=== PATIENT | male | born 1965 | race Caucasian/White ===

== ENCOUNTER 2020-09-08 07:09 | Inpatient (IN) | payer MEDICAID, OTHER ==
[~2020-09-08] VITALS: Ht 170.2 cm; Wt 116.4 kg
[~2020-09-08 07:09] MED LIST: CEFD300C37 PO; LIDOCAINE 4%, 4 ML SYR/CANN TP ONE; OXYMETAZOLINE NASAL SPRAY 0.05%,30ML ONE
[2020-09-08] MEDS ORDERED: LACTATED RINGERS 1,000 ML IV SCH (07:30)
[2020-09-08] MEDS ORDERED: CHLORHEXIDINE 15 ML UDC PO ONE (07:30)
[2020-09-08] MEDS ORDERED: TYLENOL OTC (07:37)
[2020-09-08 07:41] VITALS: BP 144/105
[2020-09-08] MEDS ORDERED: MIDAZOLAM 1 MG/ML, 2ML ONE (08:01)
[2020-09-08] MEDS ORDERED: PROPOFOL 10 MG/ML, 20ML ONE (08:01)
[2020-09-08] MEDS ORDERED: FENTANYL PF 100 MCG/2ML ONE ×3 (08:01→12:09)
[2020-09-08] MEDS ORDERED: LIDOCAINE-MPF 2% ,5ML ONE (08:01)
[2020-09-08] MEDS ORDERED: SUCCINYLCHOLINE 20 MG/ML, 10ML ONE (08:03)
[2020-09-08] MEDS ORDERED: ONDANSETRON 2MG/ML, 2ML ONE (08:37)
[2020-09-08] MEDS ORDERED: CEFAZOLIN 1,000 MG ONE ×2 (08:37)
[2020-09-08] MEDS ORDERED: LIDOCAINE/PF 1%, 30ML ONE (08:54)
[2020-09-08] MEDS ORDERED: EPINEPHRINE 1 MG/ML, 1ML ONE (08:54)
[2020-09-08] MEDS ORDERED: MEPERIDINE/PF 25MG/0.5ML IVPush PRN (09:00)
[2020-09-08] MEDS ORDERED: PROMETHAZINE 25 MG/ML, 1ML IVPush PRN (09:00)
[2020-09-08] MEDS ORDERED: LABETALOL 5MG/ML, 20ML IV PRN (09:00)
[2020-09-08] MEDS ORDERED: ACETAMINOPHEN 325 MG TABLET PO PRN (09:00)
[2020-09-08] MEDS ORDERED: DIAZEPAM 5 MG/ML, 2ML IVPush PRN (09:00)
[2020-09-08] MEDS ORDERED: ONDANSETRON 2MG/ML, 2ML IVPush PRN (09:00)
[2020-09-08] MEDS ORDERED: HYDROmorphone 1 MG/ML, 1ML INJ IVPush PRN (09:00)
[2020-09-08] MEDS ORDERED: hydrALAzine 20 MG/ML, 1ML IV PRN (09:00)
[2020-09-08] MEDS ORDERED: OXYcodone 5 MG/5 ML ORAL.SOL UDC PO PRN (09:00)
[2020-09-08] MEDS ORDERED: FENTANYL PF 100 MCG/2ML IV PRN (09:00)
[2020-09-08] MEDS ORDERED: EPINEPHRINE TOPICAL SOLN 1 MG/ML, 30ML TP ONE (09:41)
[2020-09-08] MEDS ORDERED: FLUORESCEIN SODIUM 500 MG/5 ML IV ONE (09:43)
[2020-09-08] MEDS ORDERED: EPINEPHRINE TOPICAL SOLN 1 MG/ML, 30ML ONE (10:20)
[2020-09-08] MEDS ORDERED: FLUORESCEIN SODIUM 500 MG/5 ML ONE (10:20)
[2020-09-08] MEDS ORDERED: BACITRACIN OINT 500U/GM, 15 GM ONE (10:20)
[2020-09-08] MEDS ORDERED: ACETAMINOPHEN 650 MG/20.3 ML UDC ONE (10:39)
[2020-09-08 11:08] LABS: BASOPHILS % (AUTO) 1 % (0-1); EOSINOPHILS % (AUTO) 2 % (1-7); LYMPHOCYTES % (AUTO) 18 % (22-44); MEAN CORPUSCULAR HEMOGLOBIN 32.1 pg (27.5-34.5); MEAN PLATELET VOLUME 7.3 fL (7.4-10.4); MONOCYTES % (AUTO) 10 % (2-9); NEUTROPHILS % (AUTO) 70 % (42-75); PLATELET COUNT 336 x10^3/uL (130-400); RED BLOOD COUNT 4.61 x10^6/uL (4.38-5.82); RED CELL DISTRIBUTION WIDTH 13.7 % (9.4-14.8)
[2020-09-08] MEDS ORDERED: OXYcodone 5 MG/5 ML ORAL.SOL UDC ONE (11:11)
[2020-09-08 11:13] LABS: ANION GAP 4 mmol/L (5-15); CALCIUM 8.5 mg/dL (8.5-10.1); CHLORIDE 103 mmol/L (98-107); CREATININE 0.97 mg/dL (0.7-1.3)
[2020-09-08] MEDS ORDERED: LABETALOL 5MG/ML, 20ML ONE (12:04)
[2020-09-08 12:30] VITALS: BP 127/92
[2020-09-08] MEDS ORDERED: ONDANSETRON 2MG/ML, 2ML IV PRN (13:00)
[2020-09-08] MEDS ORDERED: LEVOFLOXACIN/PMX 500MG/100ML 100 ML IV SCH (13:00)
[2020-09-08 13:15] VITALS: BP 136/90
[2020-09-08] MEDS: METRONIDAZOLE PMX 500MG/100ML 100 ML IV SCH (15:42)
[2020-09-08] MEDS: OXYcodone IR 5MG TABLET PO PRN ×2 (16:44→21:40)
[2020-09-08 18:30] VITALS: BP 143/84
[2020-09-08] MEDS: SODIUM CHLORIDE 0.9% 1,000 ML IV SCH (21:41)
[2020-09-09 00:02] VITALS: BP 130/88
[2020-09-09] MEDS: METRONIDAZOLE PMX 500MG/100ML 100 ML IV SCH ×2 (00:03→08:45)
[2020-09-09] MEDS: ACETAMINOPHEN 325 MG TABLET PO PRN ×2 (00:12→05:16)
[2020-09-09 03:33] VITALS: BP 116/86
[2020-09-09] MEDS: OXYcodone IR 5MG TABLET PO PRN (05:16)
[2020-09-09 05:24] LABS: BASOPHILS % (AUTO) 1 % (0-1); EOSINOPHILS % (AUTO) 3 % (1-7); LYMPHOCYTES % (AUTO) 28 % (22-44); MEAN CORPUSCULAR HEMOGLOBIN 32.2 pg (27.5-34.5); MEAN CORPUSCULAR HGB CONC 33.3 g/dL (33.2-36.2); MEAN PLATELET VOLUME 7.4 fL (7.4-10.4); MONOCYTES % (AUTO) 9 % (2-9); NEUTROPHILS % (AUTO) 59 % (42-75); PLATELET COUNT 335 x10^3/uL (130-400); RED CELL DISTRIBUTION WIDTH 13.6 % (9.4-14.8)
[2020-09-09 05:29] LABS: CHLORIDE 99 mmol/L (98-107)
[2020-09-09 05:51] LABS: ANION GAP 5 mmol/L (5-15); CALCIUM 8.8 mg/dL (8.5-10.1); CREATININE 0.82 mg/dL (0.7-1.3)
[2020-09-09 07:20] VITALS: BP 124/82
[2020-09-09] MEDS: SODIUM CHLORIDE 0.9% 1,000 ML IV SCH (08:00)
[2020-09-09] MEDS ORDERED: METR500T PO (09:33)
[2020-09-09] MEDS ORDERED: LEVO500T8 PO (09:35)
[2020-09-09 11:02] VITALS: BP 140/89
== END 2020-09-09 11:20 | disposition home or self-care (01) | DRG 156 ==
LOC: OUT 07:09 → 4NE 12:26 → OUT 12:42
PROVIDERS: ADMIT Otolaryngology; ATTEND Otolaryngology
PROC: 099 Ear, Nose, Sinus, Drainage (ICD-10-PCS; principal; 2020-09-08 09:00)
DX: J34.0 Abscess, furuncle and carbuncle of nose (principal)
CPT/HCPCS: 36415; J3490; 80048; 85025; 87070; 87075; 87077; 87102; 87186; 87205; 87635; G0378; J0171; J0690; J1956; J2250; J2405; J2704; J3010; J0330; J7030; J7120